=== PATIENT | female | born 1945 | race Caucasian/White ===

== ENCOUNTER 2020-10-29 06:25 | Emergency (ER) | payer MEDICARE, BC ==
[~2020-10-29] VITALS: Ht 154.9 cm; Wt 52.7 kg
[2020-10-29 06:31] VITALS: BP 183/91
[2020-10-29] MEDS ORDERED: FAMOTIDINE 20 MG/2 ML VIAL IVP ONE (06:45)
[2020-10-29] MEDS ORDERED: ONDANSETRON PF 4 MG/2 ML VIAL. IVP ONE (06:45)
[2020-10-29] MEDS ORDERED: IV NORMAL SALINE 1,000ML 1,000 ML IV ONE (06:45)
[2020-10-29] MEDS ORDERED: IOHEXOL 240 MG/ML 50ML VIAL. ONE (06:51)
--- NOTE | 2020-10-29 06:52 | PHYS DOC ---
Past History Past Medical History: High Cholesterol, Other Additional Past Medical Histor: rectocele Past Surgical History: Other Additional Past Surgical Histo: 2 d&C, cerclage, sinus, bilateral cataracts Smoking: Non-smoker Alcohol Use: None Drug Use: None General Adult EDM: Chief Complaint: ABDOMINAL PAIN HPI: HPI: 75-year-old female presents with several month history of intermittent lower abdomen/rectal pain. Patient describes the pain as a "cramping "pain. Reports some associated nausea without vomiting. Denies diarrhea. Patient reports she did have a bowel movement this morning. Denies fever or chills. Denies known sick contacts. Patient reports she was seen several times at [facility] for same without definitive diagnosis. Patient was advised to follow with a colorectal surgeon given history of known rectocele however she has been unable to make an appointment or to be seen. Patient reports pain became worse this morning and therefore decided to present to the ER here at [facility]. Patient denies known exposure to COVID-19. Patient reports she has received both Moderna COVID-19 vaccinations ending 09/04/2020. Review of Systems: Review of Systems: Constitutional: Denies fever or chills; reports malaise Eyes: Denies redness or eye pain HENT: Denies nasal congestion or sore throat Respiratory: Denies cough or shortness of breath Cardiovascular: Denies chest pain or palpitations GI: Reports lower abdominal pain, rectal discomfort, and nausea; denies vomiting : Denies dysuria or hematuria Musculoskeletal: Denies back pain or joint pain Integument: Denies rash or skin lesions Neurologic: Denies headache, focal weakness or sensory changes Complete systems were reviewed and found to be within normal limits, except as documented in this note. Current Medications: Current Meds: Current Medications Medications (Trade) Dose Ordered Sig/Daren Start Time Stop Time Status Last Admin Dose Admin Famotidine (Pepcid Vial) 20 mg 1X ONCE 10/29/20 06:45 10/29/20 06:46 DC Ondansetron HCl (Zofran) 4 mg 1X ONCE 10/29/20 06:45 10/29/20 06:46 DC Sodium Chloride 1,000 ml @ 1,000 mls/hr 1X ONCE 10/29/20 06:45 10/29/20 07:44 Allergies: Allergies: Allergies Coded Allergies Type Severity Reaction Last Updated Verified No Known Drug Allergies 10/29/20 No Physical Exam: PE: Constitutional: Well developed, well nourished, uncomfortable but non-toxic appearance HENT: Normocephalic, atraumatic Eyes: Conjunctiva normal, no discharge Neck: Normal range of motion, supple Lungs & Thorax: No respiratory distress, equal chest rise and fall Abdomen: Soft, no tenderness, no guarding/rebound tenderness/distention Rectal exam: Technical Instructor Allyn RN, no external hemorrhoids noted, no internal hemorrhoids noted on digital rectal exam, no pain, scant stool- light brown noted in rectal vault Skin: Warm, dry, no erythema, no rash Back: No tenderness, no CVA tenderness Extremities: No tenderness, ROM intact, no edema Neurologic: Alert and oriented X 3, no focal deficits noted Psychologic: Affect normal, judgment normal Current Patient Data: Vital Signs: Vital Signs Date Time Temp Pulse Resp B/P (MAP) Pulse Ox O2 Delivery O2 Flow Rate FiO2 10/29/20 06:31 97.9 124 18 183/91 (121) 99 Room Air EKG: EKG: @0702 NSR at 100bpm, NO ST elevation, QRS 78ms, QT/QTc 330/429ms Radiology/Procedures: Radiology/Procedures: PROCEDURE: CT ABD PELV W/ORAL&IV CONTRAST EXAM: Abdomen and pelvis CT with intravenous contrast. HISTORY: Pain. TECHNIQUE: Computed tomographic images of the abdomen and pelvis were obtained following the administration of intravenous contrast. Multiplanar reformatting was performed. *One or more of the following individualized dose reduction techniques were utilized for this examination: 1. Automated exposure control. 2. Adjustment of the mA and/or kV according to patient size. 3. Use of iterative reconstruction technique. COMPARISON: None. FINDINGS: Evaluation of the lower thorax is unremarkable. There is a 1.4 cm cyst within the right hepatic lobe. No suspicious hepatic lesion is seen. The gallbladder, pancreas, spleen, stomach and adrenal glands are unremarkable. There are simple appearing bilateral renal cortical cysts, the largest of which is seen on the left measuring 2.2 cm. No convincing solid renal lesion is seen. There is no hydronephrosis. The bladder is unremarkable. There is no appendicitis. There is moderate colonic stool. There is no abnormal bowel wall thickening. There is no lymphadenopathy. There is no acute or suspicious osseous finding. IMPRESSION: 1. Multiple simple appearing bilateral renal cysts. Follow-up is not routinely performed for simple cysts. 2. Small hepatic cyst. No suspicious hepatic lesion is seen. 3. No acute abdominal or pelvic finding. Electronically signed by: Susana Ford MD (10/29/2020 8:22 AM) [id number] Heart Score: C/O Chest Pain: N/A Course & Med Decision Making: Course & Med Decision Making Pertinent Labs and Imaging studies reviewed. (See chart for details) Patient presents with several month history of intermittent lower abdominal/rectal pain. Patient reports she has been seen at [facility] for same without definitive diagnosis. Patient does have a history of rectocele. Abdomen nonperitoneal. Rectal exam without acute finding. Pain and nausea addressed. IV fluid hydration given. EKG without acute process. Labs obtained and posted to chart. CT abdomen/pelvis with oral and IV contrast without acute process. Moderate colonic burden noted. Patient stable for discharge with outpatient follow-up with PCP/GI/Colorectal. Discussed findings and plan with patient and family, who acknowledge understanding and agreement. Markell Disclaimer: Markell Disclaimer: This electronic medical record was generated, in whole or in part, using a voice recognition dictation system. Departure Departure: Impression: Primary Impression: Abdominal pain Qualified Codes: R10.30 - Lower abdominal pain, unspecified Disposition: HOME / SELF CARE / HOMELESS Condition: STABLE Referrals: LATRICIA DON MD (PCP) DELIA MANCIA MD Patient Instructions: Abdominal Pain, Ttnf-io-[id number] Scripts Sennosides/Docusate Sodium (Colace 2-in-1 Tablet) 1 Each Tablet 1 TAB PO QHS for constipation for 30 Days, #30 TAB 0 Refills Prov: CAIT SALDIVAR DO 10/29/20 Ondansetron (ONDANSETRON ODT) 4 Mg Tab.rapdis 1 TAB PO PRN Q6-8HRS PRN for NAUSEA, #16 TAB Prov: CAIT SALDIVAR DO 10/29/20 Hyoscyamine Sulfate (LEVSIN-SL) 0.125 Mg Tab.subl 0.125 MG SL Q6HRS PRN for PAIN, #20 TAB Prov: CAIT SALDIVAR DO 10/29/20 CAIT SALDIVAR DO October 29, 2020 06:52
[2020-10-29] MEDS ORDERED: IOHEXOL 240 MG/ML 50ML VIAL. PO ONE (07:00)
[2020-10-29] MEDS ORDERED: IOHEXOL 300 MG/ML 75 ML VIAL. IV ONE (07:00)
[2020-10-29] MEDS ORDERED: HYOSCYAMINE 0.125 MG TAB.RAPDIS PO ONE (07:00)
[2020-10-29 07:11] LABS: BASO % 1 % (0-3); EOS # 0.1 x10^3/uL (0.0-0.7); EOS % 1 % (0-3); HEMATOCRIT 41.9 % (36.0-47.0); HEMOGLOBIN 14.2 g/dL (12.0-15.5); LYMPH # 2.8 x10^3/uL (1.0-4.8); LYMPH % 33 % (24-48); MEAN CORPUSCULAR HEMOGLOBIN 32 pg (25-35); MEAN CORPUSCULAR HGB CONC 34 g/dL (31-37); MEAN CORPUSCULAR VOLUME 93 fL (79-100); MONO # 0.7 x10^3/uL (0.0-1.1); MONO % 8 % (0-9); NEUT # 4.8 x10^3uL (1.8-7.7); NEUT % 57 % (31-73); PLATELET COUNT 311 x10^3/uL (140-400); RED BLOOD COUNT 4.48 x10^6/uL (3.50-5.40); RED CELL DISTRIBUTION WIDTH 12.3 % (11.5-14.5); WHITE BLOOD COUNT 8.4 x10^3/uL (4.0-11.0)
[2020-10-29 07:17] LABS: ANION GAP 11 (6-14); BLOOD UREA NITROGEN 19 mg/dL (7-20); BUN/CREATININE RATIO 27 (6-20); CARBON DIOXIDE 27 mmol/L (21-32); CHLORIDE 101 mmol/L (98-107); CREATININE 0.7 mg/dL (0.6-1.0); GFR 81.6; GLUCOSE 110 mg/dL (70-99); POTASSIUM 3.6 mmol/L (3.5-5.1); SODIUM 139 mmol/L (136-145)
[2020-10-29 07:31] LABS: ALBUMIN 4.3 g/dL (3.4-5.0); ALBUMIN/GLOBULIN RATIO 1.3 (1.0-1.7); ALK PHOS 64 U/L (46-116); ALT (SGPT) 23 U/L (14-59); AST (SGOT) 19 U/L (15-37); LIPASE 95 U/L (73-393); MAGNESIUM 2.1 mg/dL (1.8-2.4); TOTAL BILIRUBIN 0.4 mg/dL (0.2-1.0); TOTAL PROTEIN 7.6 g/dL (6.4-8.2)
--- NOTE | 2020-10-29 08:24 | RAD ---
EXAM: Abdomen and pelvis CT with intravenous contrast. HISTORY: Pain. TECHNIQUE: Computed tomographic images of the abdomen and pelvis were obtained following the administ ration of intravenous contrast. Multiplanar reformatting was performed. *One or more of the following individualized dose reduction techniques were utilized for this examina tion: 1. Automated exposure control. 2. Adjustment of the mA and/or kV according to patient size. 3. Use of iterative reconstruction technique. COMPARISON: None. FINDINGS: Evaluation of the lower thorax is unremarkable. There is a 1.4 cm cyst within the right hep atic lobe. No suspicious hepatic lesion is seen. The gallbladder, pancreas, spleen, stomach and adren al glands are unremarkable. There are simple appearing bilateral renal cortical cysts, the largest of which is seen on the left m easuring 2.2 cm. No convincing solid renal lesion is seen. There is no hydronephrosis. The bladder is unremarkable. There is no appendicitis. There is moderate colonic stool. There is no abnormal bowel wall thickening . There is no lymphadenopathy. There is no acute or suspicious osseous finding. IMPRESSION: 1. Multiple simple appearing bilateral renal cysts. Follow-up is not routinely performed for simple c ysts. 2. Small hepatic cyst. No suspicious hepatic lesion is seen. 3. No acute abdominal or pelvic finding. Electronically signed by: Susana Ford MD (10/29/2020 8:22 AM) [id number]
[2020-10-29] MEDS ORDERED: ONDA4TAB12 PO (08:46)
[2020-10-29] MEDS ORDERED: HYOS0.1265 SL (08:46)
[2020-10-29 08:48] LABS: BILIRUBIN,URINE NEG (NEG); CLARITY,URINE CLEAR; COLOR,URINE STRAW; GLUCOSE,URINE NEG (NEG); NITRITE,URINE NEG (NEG); UROBILINOGEN,URINE 0.2 mg/dL (0.2 mg/dL)
[2020-10-29] MEDS ORDERED: SENN-121 PO (08:48)
[2020-10-29 08:49] LABS: BACTERIA,URINE FEW /HPF (0-FEW); SQUAMOUS EPITHELIAL CELL,UR FEW /LPF
--- NOTE | 2020-10-29 08:53 | EKG ---
[address] [address] Test Date: 2020-10-29 Test Time: 07:02:41 Pat Name: PEDRO LUIS MCGUIRE Department: Room: Gender: F Vp [employer]: SHALONDA : 1945 Requested By: CAIT SALDIVAR Order Number: [id number] Reading MD: Measurements Intervals Gap Rate: 100 P: 67 ND: 160 QRS: 35 QRSD: 78 T: 66 QT: 330 QTc: 429 Interpretive Statements SINUS RHYTHM BIATRIAL ENLARGEMENT T ABNORMALITY IN HIGH LATERAL LEADS ABNORMAL ECG RI6.02 No previous ECG available for comparison
[2020-10-29] MEDS ORDERED: FAMO-63 PO (18:53)
[2020-10-29] MEDS ORDERED: HYDR-2155 PO (18:55)
== END 2020-10-29 08:55 | disposition home or self-care (01) ==
LOC: ER 06:25
DX: R10.30 Lower abdominal pain, unspecified (principal); K62.89 Other specified diseases of anus and rectum; R11.0 Nausea; E78.00 Pure hypercholesterolemia, unspecified
CPT/HCPCS: 36415; 74177; 80053; 81001; 82553; 83605; 83690; 83735; 84484; 85025; 87086; 93005; 96361; 96374; 96375; 99285; J2405; J3010; J3490; J7030; Q9966; Q9967

== ENCOUNTER 2020-10-29 18:04 | Emergency (ER) | payer MEDICARE, BC ==
[~2020-10-29] VITALS: Ht 154.9 cm; Wt 52.7 kg
[2020-10-29 18:04] VITALS: BP 155/90
[~2020-10-29 18:04] MED LIST: HYOS0.1265 SL; ONDA4TAB12 PO; SENN-121 PO
[2020-10-29] MEDS ORDERED: LIDO:MAALOX 1:1 20 ML SINGLE DOSE. ONE (18:37)
[2020-10-29] MEDS ORDERED: LIDO:MAALOX 1:1 20 ML SINGLE DOSE. PO ONE (18:45)
[2020-10-29] MEDS ORDERED: FAMO-63 PO (18:53)
[2020-10-29] MEDS ORDERED: HYDR-2155 PO (18:55)
--- NOTE | 2020-10-29 18:56 | PHYS DOC ---
Past History Past Medical History: High Cholesterol, Other Additional Past Medical Histor: rectocele Past Surgical History: Other Additional Past Surgical Histo: 2 d&C, cerclage, sinus, bilateral cataracts Smoking: Non-smoker Alcohol Use: None Drug Use: None General Adult EDM: Chief Complaint: ABDOMINAL PAIN HPI: HPI: Patient is a [age] year old [sex] who presents with [] Review of Systems: Review of Systems: Constitutional: Denies fever or chills Eyes: Denies change in visual acuity HENT: Denies nasal congestion or sore throat Respiratory: Denies cough or shortness of breath Cardiovascular: Denies chest pain or edema GI: Denies abdominal pain, nausea, vomiting, bloody stools or diarrhea : Denies dysuria Musculoskeletal: Denies back pain or joint pain Integument: Denies rash Neurologic: Denies headache, focal weakness or sensory changes Endocrine: Denies polyuria or polydipsia Lymphatic: Denies swollen glands Psychiatric: Denies depression or anxiety Current Medications: Current Meds: Current Medications Medications (Trade) Dose Ordered Sig/Daren Start Time Stop Time Status Last Admin Dose Admin Multi-Ingredient Mouthwash/Gargle (Gi Cocktail) 20 ml STK-MED ONCE 10/29/20 18:37 10/29/20 18:37 DC Allergies: Allergies: Allergies Coded Allergies Type Severity Reaction Last Updated Verified No Known Drug Allergies 10/29/20 No Physical Exam: PE: Constitutional: Well developed, well nourished, no acute distress, non-toxic appearance. [] HENT: Normocephalic, atraumatic, bilateral external ears normal, oropharynx moist, no oral exudates, nose normal. [] Eyes: PERRLA, EOMI, conjunctiva normal, no discharge. [] Neck: Normal range of motion, no tenderness, supple, no stridor. [] Cardiovascular:Heart rate regular rhythm, no murmur [] Lungs & Thorax: Bilateral breath sounds clear to auscultation [] Abdomen: Bowel sounds normal, soft, no tenderness, no masses, no pulsatile masses. [] Skin: Warm, dry, no erythema, no rash. [] Back: No tenderness, no CVA tenderness. [] Extremities: No tenderness, no cyanosis, no clubbing, ROM intact, no edema. [] Neurologic: Alert and oriented X 3, normal motor function, normal sensory function, no focal deficits noted. [] Psychologic: Affect normal, judgement normal, mood normal. [] EKG: EKG: [] Radiology/Procedures: Radiology/Procedures: [] Heart Score: Risk Factors: Risk Factors: DM, Current or recent (<one month) smoker, HTN, HLP, family history of CAD, obesity. Risk Scores: Score 0 - 3: 2.5% MACE over next 6 weeks - Discharge Home Score 4 - 6: 20.3% MACE over next 6 weeks - Admit for Clinical Observation Score 7 - 10: 72.7% MACE over next 6 weeks - Early Invasive Strategies Course & Med Decision Making: Course & Med Decision Making Pertinent Labs and Imaging studies reviewed. (See chart for details) [] Dragon Disclaimer: Dragon Disclaimer: This electronic medical record was generated, in whole or in part, using a voice recognition dictation system. Departure Departure: Impression: Primary Impression: Epigastric abdominal pain Disposition: HOME / SELF CARE / HOMELESS Condition: STABLE Referrals: LATRICIA DON MD (PCP) DELIA MANCIA MD Patient Instructions: Abdominal Pain, Lytm-rq-Gcqy, Gastritis, Adult, Genn-xs-Pcch Scripts Hydrocodone Bit/Acetaminophen (HYDROCODONE-APAP 5-325 ) 1 Each Tablet 0.5-1 TAB PO PRN Q6HRS PRN for PAIN, #14 TAB 0 Refills Prov: CAIT SALDIVAR DO 10/29/20 Famotidine (PEPCID) 20 Mg Tablet 1 TAB PO BID for Gastritis, #30 TAB Prov: CAIT SALDIVAR DO 10/29/20 CAIT SALDIVAR DO October 29, 2020 18:56
== END 2020-10-29 18:57 | disposition home or self-care (01) ==
LOC: ER 18:04
DX: R10.13 Epigastric pain (principal); E78.00 Pure hypercholesterolemia, unspecified
CPT/HCPCS: 99283

== ENCOUNTER 2020-10-31 00:10 | Emergency (ER) | payer MEDICARE, BC ==
[~2020-10-31] VITALS: Ht 154.9 cm; Wt 52.7 kg
[~2020-10-31 00:10] MED LIST changes: +FAMO-63 PO; +HYDR-2155 PO
--- NOTE | 2020-10-31 00:46 | PHYS DOC ---
Past History Past Medical History: High Cholesterol, Other Additional Past Medical Histor: rectocele Past Surgical History: Other Additional Past Surgical Histo: 2 d&C, cerclage, sinus, bilateral cataracts Smoking: Non-smoker Alcohol Use: None Drug Use: None Adult General HPI HPI Patient is a 75-year-old female who presents with a chief complaint of feelings of needing to have a bowel movement. Patient states this is been going on for a long time and has seen her doctor about it and even came in the emergency department 2 days ago. States that she feels like she has to have a bowel movement, sits on the toilet and tries really hard and nothing happens. States she does have a hemorrhoid that she knows about but it does not cause her any pain or bleeding. States that she has had multiple work-ups with nothing found. Denies headache, chest pain, shortness of breath, abdominal pain, nausea, vomiting, diarrhea, dysuria, hematuria or blood in the stool. Denies any numbness/weakness/tingling. States she went through menopause at 55 and had not had a period since. Review of Systems Review of Systems Review of systems otherwise unremarkable except noted in HPI Allergies Allergies Allergies Coded Allergies Type Severity Reaction Last Updated Verified No Known Drug Allergies 10/29/20 No Physical Exam Physical Exam Constitutional: Well developed, well nourished, no acute distress, non-toxic appearance. [] Cardiovascular: Sinus tachycardia Lungs & Thorax: Bilateral breath sounds clear to auscultation [] Abdomen: soft, no tenderness, no masses, no pulsatile masses. [] Skin: Warm, dry, no erythema, no rash. [] Back: No tenderness, no CVA tenderness. [] Extremities: No tenderness, no cyanosis, no clubbing, ROM intact, no edema. [] Neurologic: Alert and oriented X 3, normal motor function, normal sensory function, no focal deficits noted. [] Psychologic: A anxious, judgement normal, mood normal. [] EKG EKG [] Radiology/Procedures Radiology/Procedures Imaging from 2 days ago [] EXAM: Abdomen and pelvis CT with intravenous contrast. HISTORY: Pain. TECHNIQUE: Computed tomographic images of the abdomen and pelvis were obtained following the administration of intravenous contrast. Multiplanar reformatting was performed. *One or more of the following individualized dose reduction techniques were utilized for this examination: 1. Automated exposure control. 2. Adjustment of the mA and/or kV according to patient size. 3. Use of iterative reconstruction technique. COMPARISON: None. FINDINGS: Evaluation of the lower thorax is unremarkable. There is a 1.4 cm cyst within the right hepatic lobe. No suspicious hepatic lesion is seen. The gallbladder, pancreas, spleen, stomach and adrenal glands are unremarkable. There are simple appearing bilateral renal cortical cysts, the largest of which is seen on the left measuring 2.2 cm. No convincing solid renal lesion is seen. There is no hydronephrosis. The bladder is unremarkable. There is no appendicitis. There is moderate colonic stool. There is no abnormal bowel wall thickening. There is no lymphadenopathy. There is no acute or suspicious osseous finding. IMPRESSION: 1. Multiple simple appearing bilateral renal cysts. Follow-up is not routinely performed for simple cysts. 2. Small hepatic cyst. No suspicious hepatic lesion is seen. 3. No acute abdominal or pelvic finding. Electronically signed by: Susana Ford MD (10/29/2020 8:22 AM) [id number] Heart Score C/O Chest Pain: No Risk Factors: Risk Factors: DM, Current or recent (<one month) smoker, HTN, HLP, family history of CAD, obesity. Risk Scores: Risk Factors: DM, Current or recent (<one month) smoker, HTN, HLP, family history of CAD, obesity. Course & Med Decision Making Course & Med Decision Making Patient is a 75-year-old female who presents with a chief complaint of feelings Vital signs notable for hypertension. Physical exam noted above. Patient offered pelvic and rectal exam but stated she had 1 2 days ago as well as a CAT scan and did not want repeated. Denies any dysuria, hematuria, blood in stool, vaginal or rectal prolapse. States that she does have a hemorrhoid, but the internal and does not really cause her any problems. Offered patient basic work-up as well but patient politely declined. Patient did ask for some anxiety medicine however though, as she is anxious. Given diazepam. Advised to follow-up first thing in the morning with primary care physician to discuss ED visits, with work-ups and set up an appointment for follow-up as soon as possible. Return precautions to the ED. Patient grateful, verbalized understanding and agreed with plan of discharge. Dragtrevor Disclaimer Dragon Disclaimer This electronic medical record was generated, in whole or in part, using a voice recognition dictation system. Departure Departure: Impression: Primary Impression: Tenesmus (rectal) Disposition: 01 HOME / SELF CARE / HOMELESS Condition: GOOD Referrals: LATRICIA DON MD (PCP) Additional Instructions: You are seen in the emergency department today for feelings of tenesmus, feeling like you have to have a bowel movement but nothing happens when you try to go. He states that she do have a history of hemorrhoids but do not seem to be bothered by them currently. You are offered a rectal/pelvic exam but politely declined. We discussed differential diagnosis for your symptoms and came up with a plan of follow-up with your primary care physician first thing in the morning to discuss outpatient MRI. You were given a diazepam for anxiety at your request. Please come back to emergency department immediately with new or concerning symptoms as discussed. PRISCILLA VANG MD October 31, 2020 00:46
[2020-10-31 00:55] VITALS: BP 150/90
[2020-10-31] MEDS ORDERED: diazePAM 5 MG TABLET. PO ONE (01:00)
== END 2020-10-31 00:58 | disposition home or self-care (01) ==
LOC: ER 00:10
DX: R19.8 Other specified symptoms and signs involving the digestive system and abdomen (principal)
CPT/HCPCS: 99283-25